=== PATIENT | female | born 1955 | race Caucasian/White ===

== ENCOUNTER → 2020-08-24 | Day surgery (SDC) | payer OTHER ==
[~2020-08-24] VITALS: Ht 152.4 cm; Wt 93.0 kg
[~2020-08-24] MED LIST: ASPIRIN CHEWABL81 MG PO; DEXAMETHASONE 2M2 MG PO; EFFEXOR-XR 75 M75 MG PO; MOBIC7.5 MG PO; NORCO 5-325 TA1 EACH PO; ONDANSETRON ODT8 MG PO; VENTOLIN HFA IN18 GM INH
[2020-08-24 08:05] LABS: HCT 45.7 % (37.0-47.0); HGB 14.6 g/dl (12.5-16.0); MCHC 31.9 g/dL (32.0-36.0); MCV 90.9 fL (78.0-100.0); MPV 9.5 fL (6.0-9.5); RBC 5.03 M/uL (4.20-5.40); RDW 12.9 % (11.5-14.0); WBC 8.1 K/uL (4.0-10.5)
[2020-08-24 08:36] LABS: ALBUMIN 4.1 g/dL (3.4-5.0); BILIRUBIN - TOTAL 0.8 mg/dL (0.2-1.0); BUN/CREAT RATIO (CALC) 18.2 RATIO; CREATININE 0.88 mg/dL (0.51-0.95); GLOBULIN (CALCULATION) 3.4 g/dL; POTASSIUM 4.2 mmol/L (3.5-5.1); TOTAL PROTEIN 7.5 g/dL (6.4-8.2)
== END | disposition home or self-care (01) ==
LOC: FAS 06:55
PROVIDERS: Surgery
DX: K29.70 Gastritis, unspecified, without bleeding (principal); K58.9 Irritable bowel syndrome, unspecified; K21.9 Gastro-esophageal reflux disease without esophagitis; M19.90 Unspecified osteoarthritis, unspecified site; Z91.89 Other specified personal risk factors, not elsewhere classified; E03.9 Hypothyroidism, unspecified; F17.210 Nicotine dependence, cigarettes, uncomplicated; F32.9 Major depressive disorder, single episode, unspecified; G47.30 Sleep apnea, unspecified; Z88.8 Allergy status to other drugs, medicaments and biological substances; Z41.1 Encounter for cosmetic surgery; Z90.49 Acquired absence of other specified parts of digestive tract; Z90.710 Acquired absence of both cervix and uterus; Z98.890 Other specified postprocedural states
CPT/HCPCS: 36415; 76705; 80053; J1100; J2250; J2704; J7120

== ENCOUNTER → 2020-11-16 | Day surgery (SDC) | payer OTHER ==
[2020-11-16 09:25] LABS: HCT 41.4 % (37.0-47.0); HGB 13.3 g/dl (12.5-16.0); MCH 29.2 pg (25.0-31.0); MCHC 32.1 g/dL (32.0-36.0); MPV 9.3 fL (6.0-9.5); RBC 4.55 M/uL (4.20-5.40); RDW 13.7 % (11.5-14.0); WBC 6.1 K/uL (4.0-10.5)
[2020-11-16 09:40] LABS: ALBUMIN 3.9 g/dL (3.4-5.0); BILIRUBIN - TOTAL 0.6 mg/dL (0.2-1.0); CREATININE 0.8 mg/dL (0.51-0.95); GLOBULIN (CALCULATION) 3.3 g/dL; POTASSIUM 4.3 mmol/L (3.5-5.1); TOTAL PROTEIN 7.2 g/dL (6.4-8.2)
== END | disposition home or self-care (01) ==
LOC: FAS 08:47
PROVIDERS: Surgery
DX: K81.1 Chronic cholecystitis (principal); K76.0 Fatty (change of) liver, not elsewhere classified; N60.82 Other benign mammary dysplasias of left breast; K29.70 Gastritis, unspecified, without bleeding; K66.0 Peritoneal adhesions (postprocedural) (postinfection); K21.9 Gastro-esophageal reflux disease without esophagitis; E03.9 Hypothyroidism, unspecified; G47.30 Sleep apnea, unspecified; M19.90 Unspecified osteoarthritis, unspecified site; F32.9 Major depressive disorder, single episode, unspecified; Z20.822 Contact with and (suspected) exposure to COVID-19; Z98.890 Other specified postprocedural states; Z79.899 Other long term (current) drug therapy; Z90.710 Acquired absence of both cervix and uterus; Z88.8 Allergy status to other drugs, medicaments and biological substances; Z88.5 Allergy status to narcotic agent; Z86.010 Personal history of colon polyps; Z96.653 Presence of artificial knee joint, bilateral; Z80.3 Family history of malignant neoplasm of breast; Z80.0 Family history of malignant neoplasm of digestive organs; Z87.891 Personal history of nicotine dependence
CPT/HCPCS: 36415; 74300; 80053; 93005; C1758; J1100; J1170; J2250; J2405; J2550; J2704; J2710; J3010; J7120; Q9967